=== PATIENT | male | born 1990 | race Hispanic/Latino ===

== ENCOUNTER 2019-11-30 19:28 | Emergency (ER) | payer OTHER ==
[~2019-11-30] VITALS: Ht 182.9 cm; Wt 131.1 kg
[~2019-11-30 19:28] MED LIST changes: -DICYCLOMINE HCL10 MG; -FAMOTIDINE20 MG PO
[2019-11-30] MEDS ORDERED: SODIUM CHLORIDE 0.9% 1000ML 1,000 ML IV STA (19:58)
[2019-11-30] MEDS ORDERED: KETOROLAC TROMETHAMINE 30 MG/ML VIAL IV STA (19:58)
[2019-11-30] MEDS ORDERED: PROMETHAZINE 12.5MG/ NACL 0.9% 12.5 MG/50 ML BAG IV ONE (20:00)
[2019-11-30] MEDS ORDERED: PROMETHAZINE HCL (IM) 25 MG/ML VIAL ONE (20:11)
[2019-11-30] MEDS ORDERED: SODIUM CHLORIDE 0.9% 1000ML 1,000 ML ONE (20:11)
[2019-11-30] MEDS ORDERED: FAMOTIDINE20 MG PO (20:17)
[2019-11-30] MEDS ORDERED: DICYCLOMINE HCL10 MG (20:18)
--- NOTE | 2019-11-30 21:14 | Diagnostic Imaging Report ---
EXAM: CT Abdomen and Pelvis WITHOUT contrast INDICATION: Abdominal pain, vomiting. COMPARISON: None. TECHNIQUE: Abdomen and pelvis were scanned utilizing a multidetector helical scanner from the lung base to the pubic symphysis without administration of IV contrast. Absence of intravenous contrast decreases sensitivity for detection of focal lesions and vascular pathology. Coronal and sagittal reformations were obtained. Routine protocol was performed. IV CONTRAST: None. ORAL CONTRAST: Water RADIATION DOSE: Total DLP: 1453.49 mGy*cm Estimated effective dose: (DLP x 0.015 x size factor) mSv COMPLICATIONS: None FINDINGS: LINES and TUBES: None. LOWER THORAX: Unremarkable HEPATOBILIARY: The liver is diffuse hypodense compared to the spleen, consistent with diffuse hepatic diffuse hepatic steatosis. No focal hepatic lesions. No biliary ductal dilation. GALLBLADDER: There are cholecystectomy clips. SPLEEN: No splenomegaly. PANCREAS: No focal masses or ductal dilatation. ADRENALS: No adrenal nodules KIDNEYS/URETERS: No hydronephrosis. No cystic or solid mass lesions. No stones. GI TRACT: Mild dilatation of the small bowel bowel loops were air-fluid levels with decompressed small bowel loops in the left lower quadrant anteriorly as seen on images 73. There is a small volume of air throughout the colon which also contains a small volume of fluid. Postsurgical changes involving the stomach, possibly status post gastric sleeve procedure: Correlate with the surgical history. Appendix is nonvisualized, however, there is no dilated tubular structure in the right lower quadrant or inflammatory changes. PELVIC ORGANS/BLADDER: Mild calcifications of the prostate. LYMPH NODES: There are mildly prominent lower mesenteric lymph nodes; for instance, lymph node measures 1.0 cm in short axis on image 66 series 2. VESSELS: Unremarkable. PERITONEUM / RETROPERITONEUM: No free air or fluid. BONES: Bilateral L5 without spondylolisthesis SOFT TISSUES: Unremarkable. IMPRESSION: 1. Findings suggestive of mild small bowel ileus with decompressed bowel loops in the left lower quadrant. 2. Possible mild mesenteric lymphadenitis. Signed by: Dr. Darline Walker M.D. on 11/30/2019 9:11 PM
--- NOTE | 2019-11-30 21:31 | Emergency Department Note ---
History of Present Illnes History of Present Illness Chief Complaint: Abdominal Complaints History of Present Illness This is a 29 year old male Chief Complaint Comment UPPER ABD PAIN SINCE WED. VOMITING X4 THIS EVENING. WENT TO PCP TODAY AND SENT HOME WITH RX(UNKNOWN). ONSET WEDNESDAY NIGHT. STATES ALWAYS HAS ABD PAIN SINCE HAD GASTRIC SLEEVE BUT STATES THIS IS DIFF. PAIN. HAD FEVER NIGHT BUT NOT WED. STATES HAD COVID TEST DONE YEST BUT WAS NEG. . Historian: Patient Arrival Mode: Car Onset (how long ago): day(s) (2) Location: epigastric Quality: dull Radiation: Denies non-radiation, Denies back, Denies neck, Denies extremity, Denies abdomen, Denies periumbilical, Denies flank, Denies proximal, Denies distal, Denies other Severity: moderate Duration (how long): day(s) (1) Timing of current episode: intermittent Progression: waxing and waning Chronicity: new Context: Denies recent illness, Denies recent surgery, Denies recent immobilization, Denies recent travel, Denies trauma/injury, Denies new medications, Denies hx of DVT/PE, Denies non-compliance w/ medications, Denies other Relieving factors: none Exacerbating factors: none Associated symptoms: Reports nausea/vomiting; Denies denies other symptoms, Denies confusion, Denies chest pain, Denies cough, Denies diaphoresis, Denies fever/chills, Denies headaches, Denies loss of appetite, Denies malaise, Denies rash, Denies seizure, Denies shortness of breath, Denies syncope, Denies weakness, Denies other Treatments prior to arrival: none Past Medical/Family History Physician Review I have reviewed the patient's past medical and family history. Any updates have been documented here. Past Medical History Recent Fever: Yes (ON . BUT NOT WED) Clinical Suspicion of Infectio: No New/Unexplained Change in Ment: No Social History Smoking Cessation: Current some day smoker Alcohol Use: Daily Any Illegal Drug Use: No Other Any Pre-Existing Lines (PICC,: No Review of Systems Review of Systems Constitutional: Reports no symptoms EENTM: Reports no symptoms Cardiovascular: Reports no symptoms Respiratory: Reports no symptoms Gastrointestinal: Reports as per HPI Genitourinary: Reports no symptoms Musculoskeletal: Reports no symptoms Integumentary: Reports no symptoms Neurological: Reports no symptoms Psychological: Reports no symptoms Endocrine: Reports no symptoms Hematological/Lymphatic: Reports no symptoms Physical Exam Related Data Allergies: Coded Allergies: No Known Allergies (Unverified , 06/01/13) Triage Vital Signs Vital Signs Date Time Temp Pulse Resp B/P (MAP) Pulse Ox O2 Delivery O2 Flow Rate FiO2 11/30/19 19:41 100.5 96 18 138/95 98 Room Air Vital signs reviewed: Yes Physical Exam CONSTITUTIONAL Constitutional: Present well-developed, Present well-nourished HENT HENT: Present normocephalic, Present atraumatic, Present oropharynx clear/moist, Present nose normal HENT L/R: Present left ext ear normal, Present right ext ear normal EYES Eyes: Reports PERRL, Reports conjunctivae normal NECK Neck: Present ROM normal PULMONARY Pulmonary: Present effort normal, Present breath sounds normal CARDIOVASCULAR Cardiovascular: Present regular rhythm, Present heart sounds normal, Present capillary refill normal, Present normal rate GASTROINTESTINAL Abdominal: Present soft, Present bowel sounds normal, Present tender (epigastric) GENITOURINARY Genitourinary: Present exam deferred SKIN Skin: Present warm, Present dry MUSCULOSKELETAL Musculoskeletal: Present ROM normal NEUROLOGICAL Neurological: Present alert, Present oriented x 3, Present no gross motor or sensory deficits PSYCHOLOGICAL Psychological: Present mood/affect normal, Present judgement normal Results Laboratory Lab results reviewed: Yes Imaging Imaging results reviewed: Yes Assessment & Plan Medical Decision Making MDM perforation obstruction Reassessment Reassessment time: 21:30 Reassessment better Assessment & Plan Final Impression: (1) Abdominal pain, acute, epigastric (2) Vomiting and diarrhea Depart Disposition: HOME, SELF-CARE Last Vital Signs Date Time Temp Pulse Resp B/P (MAP) Pulse Ox O2 Delivery O2 Flow Rate FiO2 11/30/19 19:41 100.5 96 18 138/95 98 Room Air Home Meds Reported Medications Dicyclomine Hcl (DICYCLOMINE HCL) 10 Mg Capsule 11/30/19 Famotidine (FAMOTIDINE) 20 Mg Tab, 20 MG PO DAILY, #30 TAB 11/30/19 Esomeprazole Magnesium (NEXIUM) 40 Mg Capsule.dr, 40 MG PO PRN 06/01/13 Medications in the ED Ketorolac Tromethamine 15 mg ONCE STAT IV Last administered on 11/30/19at 20:12; Admin Dose 15 MG; Start 11/30/19 at 19:58; Stop 11/30/19 at 20:12; Status DC Sodium Chloride 1,000 ml @ 0 mls/hr Q0M STAT IV Last administered on 11/30/19at 20:10; Admin Dose 1,000 MLS/HR; Start 11/30/19 at 19:58; Stop 11/30/19 at 20:01; Status DC Promethazine HCl 25 mg STK-MED ONCE .ROUTE ; Start 11/30/19 at 20:11; Stop 11/30/19 at 20:09; Status DC Sodium Chloride 1,000 ml @ ud STK-MED ONCE .ROUTE ; Start 11/30/19 at 20:11; Stop 11/30/19 at 20:09; Status DC SAIRA HUFFMAN MD Nov 30, 2019 21:30
[2019-11-30 21:38] VITALS: BP 118/70
== END 2019-11-30 21:38 | disposition home or self-care (01) ==
LOC: FSED 20:01
DX: R10.13 Epigastric pain (principal); R11.2 Nausea with vomiting, unspecified; R19.7 Diarrhea, unspecified; Z98.84 Bariatric surgery status; F17.210 Nicotine dependence, cigarettes, uncomplicated
CPT/HCPCS: 74176; 80048; 80076; 81003; 85025; 96374; 96376; 99284; J1885; J2550; J7030

== ENCOUNTER → 2019-11-30 | Emergency (ER) | payer SELFPAY ==
[~2019-11-30] MED LIST: DICYCLOMINE HCL10 MG; FAMOTIDINE20 MG PO; NEXIUM40 MG PO
== END | disposition home or self-care (01) ==
LOC: ER 19:03
DX: R10.13 Epigastric pain (principal); R11.2 Nausea with vomiting, unspecified; R19.7 Diarrhea, unspecified; R50.9 Fever, unspecified; F17.210 Nicotine dependence, cigarettes, uncomplicated